=== PATIENT | male | born 1995 | race Caucasian/White ===

== ENCOUNTER 2022-06-03 12:41 | Emergency (ER) | payer SELFPAY ==
[~2022-06-03] VITALS: Ht 178 cm; Wt 106.5 kg
[~2022-06-03 12:41] MED LIST: ACET-2267 PO; AMOX500C2 PO; AMPH20TA; CLN.1T; SULF1TAB35 PO; SULF1TAB38 PO
[2022-06-03 13:20] LABS: BILIRUBIN,URINE NEGATIVE (NEGATIVE); CLARITY,URINE CLEAR; COLOR,URINE YELLOW; GLUCOSE, URINE (UA) NEGATIVE (NEGATIVE); KETONES,URINE NEGATIVE (NEGATIVE); LEUKOCYTE ESTERASE ,URINE NEGATIVE (NEGATIVE); NITRITE,URINE NEGATIVE (NEGATIVE); PROTEIN,URINE TRACE (NEGATIVE)
[2022-06-03 13:44] VITALS: BP_SYST 111; BP_SYST 118; BP_SYST 133; BP_DIAS 76; BP_DIAS 77; BP_DIAS 80
--- NOTE | 2022-06-03 13:46 | ED General ---
General Chief Complaint: General Problems/Pain Stated Complaint: DECREASED URINATION,MO Nursing Triage Note: PT AMB TO ED BY POV WITH C/O DEHYDRATION AND MO. PT REPORTS MO TODAY AND THAT HE IS NOT PEEING MUCH HE USUALLY DOES. 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 DENIES N/V/D, BURNING WHEN URINATING, DIZZINESS, WEAKNESS, SOB, OR ANY OTHER SX AT THIS TIME. Source of Information: Patient Exam Limitations: No Limitations History of Present Illness Date Seen by Provider: Jun 03, 2022 Time Seen by Provider: 13:28 Initial Comments Patient to the ER by private conveyance with significant other chief complaint of working on the heat and for the past day or so has noticed has had decreased urination headache, 2 out of 10 frontal bilateral and started antibiotics ye sterday azithromycin for sinusitis. He is not having dysuria diarrhea nausea vomiting constipation syncope. Allergies and Home Medications Allergies Coded Allergies: NKANo Known Allergies (Unverified Allergy, Mild, 08/03/09) Patient Home Medication List Home Medication List Reviewed: Yes Sulfamethoxazole/Trimethoprim (Bactrim Ds Tablet) 1 Each Tablet, 1 EACH PO TWICE A DAY Prescribed by: LA TOTH on 01/11/18 1243 Review of Systems Review of Systems Constitutional: No chills, No diaphoresis EENTM: No ear discharge, No ear pain Respiratory: No cough, No short of breath Cardiovascular: No chest pain, No edema, No palpitations Gastrointestinal: No abdominal pain, No nausea, No vomiting Genitourinary: No discharge, No dysuria All Other Systems Reviewed Negative Unless Noted: Yes Past Xnzowkg-Fcbazw-Imymwj Hx Patient Social History Tobacco Use?: Yes Use of E-Cig and/or Vaping dev: No Substance use?: No Alcohol Use?: Yes Alcohol type: Beer Alcohol Frequency: Daily Pt feels they are or have been: No Immunizations Up To Date Tetanus Booster (TDap): Less than 5yrs Influenza Vaccine Up-to-Date: No; Not Current First/Initial COVID19 Vaccinat: n/a Seasonal Allergies Seasonal Allergies: Yes (ragweed, spring allergies) Past Medical History Surgeries: No Respiratory: No Currently Using CPAP: No Currently Using BIPAP: No Cardiac: Yes Neurological: No Genitourinary: No Gastrointestinal: No Musculoskeletal: No Endocrine: No HEENT: No Loss of Vision: Denies Hearing Impairment: Denies Cancer: No Psychosocial: Yes ADD/ADHD Integumentary: No Blood Disorders: No Adverse Reaction/Blood Tranf: No Family Medical History Arthritis 19 FATHER Myocardial infarction 19 FATHER Thyroid disease 19 FATHER No Pertinent Family Hx Physical Exam Vital Signs Vital Signs - First Documented 06/03/22 13:11 Temp 36.0 Pulse 81 Resp 16 B/P (MAP) 128/77 (94) Pulse Ox 96 O2 Delivery Room Air Capillary Refill : Height, Weight, BMI Height: 6'0.00" Weight: 211lbs. 0.0oz. 95.311975nm; 33.00 BMI Method:Stated General Appearance: No Apparent Distress, WD/WN Eyes: Bilateral Eye Normal Inspection, Bilateral Eye PERRL, Bilateral Eye EOMI HEENT: PERRL/EOMI, TMs Normal, Normal ENT Inspection, Pharynx Normal, Moist Mucous Membranes Neck: Full Range of Motion, Normal Inspection Respiratory: No Accessory Muscle Use, No Respiratory Distress Cardiovascular: Regular Rate, Rhythm, No Edema, Normal Peripheral Pulses Extremity: Normal Capillary Refill, Normal Inspection, No Pedal Edema Neurologic/Psychiatric: Alert, Oriented x3 Progress/Results/Core Measures Suspected Sepsis SIRS Temperature: Pulse: 81 Respiratory Rate: 16 Blood Pressure 128 /77 Mean: 94 Results/Orders Lab Results Laboratory Tests Test 06/03/22 13:13 Range/Units Urine Color YELLOW Urine Clarity CLEAR Urine pH 6.0 5-9 Urine Specific [place] >=1.030 1.016-1.022 Urine Protein TRACE H NEGATIVE Urine Glucose (UA) NEGATIVE NEGATIVE Urine Ketones NEGATIVE NEGATIVE Urine Nitrite NEGATIVE NEGATIVE Urine Bilirubin NEGATIVE NEGATIVE Urine Urobilinogen 0.2 < = 1.0 MG/DL Urine Leukocyte Esterase NEGATIVE NEGATIVE Urine RBC (Auto) NEGATIVE NEGATIVE Urine RBC 0-2 /HPF Urine WBC 0-2 /HPF Urine Crystals NONE /LPF Urine Bacteria TRACE /HPF Urine Casts NONE /LPF Urine Mucus LARGE H /LPF Urine Culture Indicated NO My Orders Orders - LEYDA SAENZ Orthostatic Vital Signs (Adult (06/03/22 13:39) Vital Signs/I&O 06/03/22 06/03/22 13:11 13:44 Temp 36.0 Pulse 81 84 77 83 Resp 16 B/P (MAP) 128/77 (94) 111/76 (88) 118/77 (91) 133/80 (97) Pulse Ox 96 O2 Delivery Room Air Capillary Refill : Blood Pressure Mean: 94 Progress Note : Time: 13:43 Progress Note Aseptic vital signs. Orthostatic vital signs are unremarkable. He has moist oral mucosa. He does not appear to be acutely dehydrated. We provided him with some Pedialyte and water which he was able to drink and keep down. Departure Impression Primary Impression: Mild dehydration Disposition: 01 HOME, SELF-CARE Condition: Stable Departure-Patient Inst. Decision time for Depature: 14:05 Referrals: NO,LOCAL PHYSICIAN (PCP/Family) Primary Care Physician Patient Instructions: Dehydration, Adult (DC) Add. Discharge Instructions: Drink plenty of fluids. I suggest sports drink such as Gatorade or Powerade. Stay to the heat for the next day or 2. All discharge instructions reviewed with patient and/or family. Voiced understanding. Work/School Note: Work Release Form Date Seen in the Emergency Department: Jun 03, 2022 Return to Work: Jun 06, 2022 Restrictions: No Restrictions LEYDA SAENZ Jun 03, 2022 13:46
[2022-06-03 14:03] LABS: BACTERIA,URINE TRACE /HPF; RBC,URINE 0-2 /HPF; WBC,URINE 0-2 /HPF
[2022-06-03 14:15] VITALS: BP 122/72
== END 2022-06-03 14:15 | disposition home or self-care (01) ==
LOC: EDUNIT# 12:41 → ER 12:43
DX: E86.0 Dehydration (principal); Z28.310 Unvaccinated for COVID-19
CPT/HCPCS: 81000; 99282

== ENCOUNTER 2022-06-14 17:37 | Emergency (ER) | payer SELFPAY ==
[~2022-06-14] VITALS: Ht 177 cm; Wt 104.0 kg
[2022-06-14 17:52] VITALS: BP 126/79
--- NOTE | 2022-06-14 18:14 | ED Cough/URI ---
General Chief Complaint: Cough/Cold/Flu Symptoms Stated Complaint: BODY ACHES,CHILLS,FEVER Nursing Triage Note: PT TO ED W/ C/O BODY ACHES X4 WKS, WORSE THIS WEEKEND W/ ONSET PRODUCTIVE COUGH. REPORTS WAS COVID TESTED X2 WKS AGO AT [facility] ET WAS NEGATIVE AT THAT TIME. 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, 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 DAY, AND NOTHING ELSE TO DRINK DURING DAY--C/O HEADACHE AND DECREASED URINATION AT THAT TIME NO TESTS WERE DONE EXCEPT UA, WHICH WAS NORMAL AND EXAM DID NOT REVEAL SIGNS OF DEHYDRATION HE REPORTED THEN THAT HE HAD BEEN STARTED ON ZITHROMAX THE DAY PRIOR FOR SINUSITIS HAS NOT TAKEN ANYTHING FOR SYMPTOMS AT ANY TIME NO CHRONIC MEDICAL PROBLEMS PT IS NOT COVID OR FLU VACCINATED PCP: NONE Allergies and Home Medications Allergies Coded Allergies: NKANo Known Allergies (Unverified Allergy, Mild, 08/03/09) Patient Home Medication List Home Medication List Reviewed: Yes Sulfamethoxazole/Trimethoprim (Bactrim Ds Tablet) 1 Each Tablet, 1 EACH PO TWICE A DAY Prescribed by: LA TOTH on 01/11/18 1243 Review of Systems Review of Systems Constitutional: see HPI, chills, fever EENTM: see HPI Respiratory: see HPI, cough Cardiovascular: no symptoms reported Gastrointestinal: no symptoms reported Genitourinary: no symptoms reported Musculoskeletal: see HPI, other (BODY ACHES) Skin: no symptoms reported Psychiatric/Neurological: See HPI, Headache Hematologic/Lymphatic: No Symptoms Reported Immunological/Allergic: no symptoms reported Past Wndqfhf-Cyqndr-Uhhtzj Hx Patient Social History Tobacco Use?: Yes Tobacco type used: Cigarettes Smoking Status: Former Smoker Use of E-Cig and/or Vaping dev: No Alcohol Use?: Yes (ON WEEKENDS) Alcohol Frequency: Couple times a week Pt feels they are or have been: No Immunizations Up To Date Tetanus Booster (TDap): Less than 5yrs First/Initial COVID19 Vaccinat: n/a Seasonal Allergies Seasonal Allergies: Yes (ragweed, spring allergies) Past Medical History Surgeries: No Respiratory: No Currently Using CPAP: No Currently Using BIPAP: No Cardiac: Yes Neurological: No Genitourinary: No Gastrointestinal: No Musculoskeletal: No Endocrine: No HEENT: No Loss of Vision: Denies Hearing Impairment: Denies Cancer: No Psychosocial: Yes ADD/ADHD Integumentary: Yes (2018-ADMITTED WITH SEPSIS/CELLULITIS OF LEFT LEG) Blood Disorders: No Adverse Reaction/Blood Tranf: No Family Medical History Arthritis 19 FATHER Myocardial infarction 19 FATHER Thyroid disease 19 FATHER No Pertinent Family Hx Physical Exam Vital Signs - First Documented 06/14/22 17:52 Temp 38.8 Pulse 92 Resp 20 B/P (MAP) 126/79 (95) Pulse Ox 96 O2 Delivery Room Air Capillary Refill : Less Than 3 Seconds Height: 6'0.00" Weight: 211lbs. 0.0oz. 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 as tested, no motor/sensory deficits, alert, normal mood/affect, oriented x 3 Skin: normal color, warm/dry Progress/Results/Core Measures Suspected Sepsis SIRS Temperature: Pulse: 92 Respiratory Rate: 20 Blood Pressure 126 /79 Mean: 95 Results/Orders Lab Results Laboratory Tests Test 06/14/22 17:57 06/14/22 18:03 Range/Units Influenza Type A (RT-PCR) Not Detected Not Detecte Influenza Type B (RT-PCR) Not Detected Not Detecte SARS-CoV-2 RNA (RT-PCR) Detected H Not Detecte Group A Streptococcus Screen NEGATIVE NEGATIVE My Orders Orders - GALDINO GALAN DO Rapid Strep A Screen (06/14/22 17:56) Covid 19 Inhouse Test (06/14/22 17:56) Influenza A And B By Pcr (06/14/22 17:56) Isolation Central Supply Req (06/14/22 17:56) Acetaminophen Tablet (Tylenol Tablet) (06/14/22 18:30) Ibuprofen Tablet (Motrin Tablet) (06/14/22 18:30) Medications Given in ED Current Medications Medications Dose Ordered Sig/Angelique Route Start Time Stop Time Status Last Admin Dose Admin Acetaminophen 1,000 mg ONCE ONCE PO 06/14/22 18:30 06/14/22 18:31 DC 06/14/22 18:35 1,000 MG Ibuprofen 800 mg ONCE ONCE PO 06/14/22 18:30 06/14/22 18:31 DC 06/14/22 18:35 800 MG Vital Signs/I&O 06/14/22 17:52 Temp 38.8 Pulse 92 Resp 20 B/P (MAP) 126/79 (95) Pulse Ox 96 O2 Delivery Room Air Capillary Refill : Less Than 3 Seconds Blood Pressure Mean: 95 Progress Note : Progress Note PLACED IN ISOLATION ROOM PPE WORN AT ALL TIMES COVID, STREP AND FLU TESTING DONE GIVEN TYLENOL AND MOTRIN FOR FEVER Departure Impression Primary Impression: COVID-19 virus infection Disposition: 01 HOME, SELF-CARE Condition: Stable Departure-Patient Inst. Decision time for Depature: 18:47 Referrals: NO,LOCAL PHYSICIAN (PCP) Primary Care Physician Patient Instructions: COVID-19 ED, Preventing the Spread of an Infectious Disease Add. Discharge Instructions: LOTS OF CLEAR LIQUIDS--WATER, BROTH, JELLO, GATORADE--DRINK ENOUGH SO YOU ARE URINATING EVERY 2-3 HOURS WHILE AWAKE TYLENOL 1 GRAM + MOTRIN 800 MG 4 TIMES A DAY FOR PAIN OR FEVER OVER THE COUNTER MEDICATIONS FOR COUGH AND CONGESTION NEEDED QUARANTINE FOR 10 [address]LLOW UP WITH DR OF CHOICE IF SYMPTOMS WORSEN All discharge instructions reviewed with patient and/or family. Voiced understanding. GALDINO GALAN DO Jun 14, 2022 18:14
[2022-06-14] MEDS ORDERED: IBUPROFEN 800 MG (MOTRIN) TAB PO ONE (18:30)
[2022-06-14] MEDS ORDERED: ACETAMINOPHEN 500 MG TAB (TYLENOL) PO ONE (18:30)
== END 2022-06-14 18:58 | disposition home or self-care (01) ==
LOC: EDUNIT# 17:37 → ER 17:39
DX: U07.1 COVID-19 (principal); Z87.891 Personal history of nicotine dependence; Z28.310 Unvaccinated for COVID-19
CPT/HCPCS: 87430; 87636; 99283